=== PATIENT | male | born 1985 | race Caucasian/White ===

== ENCOUNTER 2020-12-31 22:35 | Emergency (ER) | payer SELFPAY ==
[2020-12-31 22:36] VITALS: BP 182/94; PULSE 103; RESP 18; TEMP 36.7; O2SAT 96; BMI 33.4
--- NOTE | 2020-12-31 23:04 | EKG12_ITS ---
Test Reason : DYSRHYTHMIA Blood Pressure : / mmHG Vent. Rate : 091 BPM Atrial Rate : 091 BPM P-R Int : 146 ms QRS Dur : 086 ms QT Int : 366 ms P-R-T Axes : 031 030 030 degrees QTc Int : 450 ms Normal sinus rhythm Nonspecific T wave abnormality Abnormal ECG Confirmed by FADI LEIVA, NAMAN ([id number]), brands editor SHUBHAM MATAMOROS ([id number]) on 01/05/2021 6:53:06 AM Referred By: SCOTTY Confirmed By:NAMAN APONTE MD
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
[2020-12-31 23:12] LABS: Absolute Lymphocyte Count 4.17 X10^3/uL (0.83-4.51); Absolute Neutrophil Count 5.1 X10^3/uL (2.0-7.7); Basophil# 0.08 X10^3/uL; Basophil% 0.8 % (0-1); Eosinophil# 0.25 X10^3/uL; Eosinophils% 2.3 % (0-5); Hematocrit 43.2 % (40-54); Hemoglobin 14.4 g/dL (13.0-16.5); Lymphocyte # 4.17 X10^3/ul (0.83-4.51); Lymphocyte % 39.2 % (19-41); Mean Corp Hgb Conc 33.3 g/dL (32-36); Mean Corpuscular Hgb 30.6 pg (27.0-32.0); Mean Corpuscular Volume 91.9 fL (80-94); Mean Platelet Vol. 10.2 fl (6.2-12.0); Monocyte# 0.97 X10^3/uL; Monocyte% 9.1 % (0-10); NRBC Flagged by Analyzer 0 % (0-5); Neutrophil # 5.13 X10^3/uL (2.7-7.7); Neutrophil % 48.1 % (47-70); Platelet Count 303 K/mm3 (150-450); RBC Distribution Width CV 12.2 % (11.6-14.6); White Blood Count 10.7 K/mm3 (4.4-11.0)
[2020-12-31] MEDS: Morphine 4 MG/ML Syringe IV (23:14)
[2020-12-31] MEDS: Ondansetron 4 MG/2 ML Vial IV (23:15)
[2020-12-31 23:23] LABS: Partial Thromboplast Time 22.2 Seconds (24.1-36.2); Prothrombin Time (Protime)PT. 12.2 SECONDS (11.7-14.9)
[2020-12-31 23:24] LABS: AST(SGOT) 67 U/L (15-37); Alanine Aminotransfer ALT/SGPT 140 U/L (16-61); Albumin, Serum 4.4 g/dL (3.2-5.0); Alkaline Phosphatase 76 U/L (45-117); Anion Gap 11 (5-15); BUN 19 mg/dL (7-18); BUN/Creat Ratio 15.4 RATIO (10-20); Bilirubin, Direct 0.12 mg/dL (0.00-0.30); Calcium,Total 9.3 mg/dL (8.5-10.1); Chloride 105 mmol/L (98-107); Creatinine, Serum 1.23 mg/dL (0.70-1.30); EST Glomerular Filtration Rate 71 mL/min (>60); Est Glom Filt Rate - Afr Amer 86 mL/min (>60); Globulin 3.7 g/dL (2.2-4.2); Glucose 99 mg/dL (74-106); Potassium 3.6 mmol/L (3.5-5.1); Protein, Total 8.1 g/dL (6.4-8.2); Sodium Level 139 mmol/L (136-145)
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
[2021-01-01] MEDS: 0.9% Normal Saline 1,000 ML 200 ML IV (00:28)
[2021-01-01] MEDS: Morphine 4 MG/ML Syringe IV (00:29)
[2021-01-01 00:53] VITALS: BP 145/78; PULSE 106; RESP 16; O2SAT 97
[2021-01-01 01:24] VITALS: BP 141/85; PULSE 96; RESP 18; O2SAT 96
== END 2021-01-01 01:28 | disposition home or self-care (01) ==
PROVIDERS: Emergency Provider Emergency Medicine
DX: S01.81XA Laceration without foreign body of other part of head, initial encounter (principal); S82.892A Other fracture of left lower leg, initial encounter for closed fracture; V29.40XA Motorcycle driver injured in collision with unspecified motor vehicles in traffic accident, initial encounter
CPT/HCPCS: 29505; G0168; 70450; 71260; 72125; 73590; 74177; 80048; 80076; 85025; 85610; 85730; 93005; 96374; 96375; 96376; 99285; J7030; Q9967; A4216; J2405

== ENCOUNTER → 2021-01-07 07:10 | Outpatient (CLI) | payer MEDICAID, SELFPAY ==
[2020-12-31 22:36] VITALS: BMI 33.4
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
== END ==
PROVIDERS: Referring Provider Podiatrist; Visit Provider Podiatrist
DX: S82.445A Nondisplaced spiral fracture of shaft of left fibula, initial encounter for closed fracture (principal); S82.392A Other fracture of lower end of left tibia, initial encounter for closed fracture
CPT/HCPCS: 73700

== ENCOUNTER 2021-02-02 14:41 | Emergency (ER) | payer MEDICAID, SELFPAY ==
[2021-02-02 14:43] VITALS: BP 149/93; PULSE 92; RESP 16; TEMP 36.7; O2SAT 96; BMI 30.9
--- NOTE | 2021-02-02 15:03 | VDLE_ITS ---
Reason For Study: pain RIGHT LEFT CFV is compressible, spontaneous, phasic, GSV is normal. competent and demonstrates normal CFV is compressible, spontaneous, phasic, augmentation. competent, and demonstrates normal Procedure augmentation. This is a venous duplex using B-mode, color FV is compressible, spontaneous, phasic, flow and spectral Doppler. competent and demonstrates normal Exam performed portable in ED. augmentation. The exam was diagnostic. POP V is compressible, spontaneous, phasic, A preliminary report was called and/or faxed competent and demonstrates normal to Dr. Leonardo. augmentation. T/P Trunk is compressible. LT PerV is compressible. PTV and Soleus V are dilated and noncompressible. VL/Venous Duplex US, Unilateral Interpretation Summary Acute deep vein thrombosis is noted in the left posterior tibial vein. Acute de ep vein thrombosis is noted in the left soleus vein. The remainder of the left lower extremity deep v enous system is patent and compressible. Valvular competence appears intact within the proximal deep venous system on the left . The left great saphenous vein appears patent and compressible seg mentally. Ordering Physician: Catarina Leonardo Performed By: Abhay Jordan RVT and Student
[2021-02-02] MEDS: APIXABAN 5 MG TABLET 10 MG PO (16:03)
[2021-02-02 16:04] VITALS: BP 142/96; PULSE 78; RESP 16; O2SAT 96
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
== END 2021-02-02 16:08 | disposition home or self-care (01) ==
PROVIDERS: Emergency Provider Student in an Organized Health Care Education/Training Program
DX: I82.4Z2 Acute embolism and thrombosis of unspecified deep veins of left distal lower extremity (principal)
CPT/HCPCS: 93971; 99283

== ENCOUNTER → 2021-02-09 12:17 | Outpatient (CLI) | payer MEDICAID, SELFPAY ==
[2021-02-02 14:43] VITALS: BMI 30.9
== END ==
PROVIDERS: PCP Family Medicine; Referring Provider Family Medicine; Visit Provider Family Medicine
DX: I82.409 Acute embolism and thrombosis of unspecified deep veins of unspecified lower extremity (principal)
CPT/HCPCS: 36415

== ENCOUNTER → 2021-04-21 10:42 | Outpatient (CLI) | payer MEDICAID, SELFPAY | PROVIDERS: PCP Family Medicine; Referring Provider Family Medicine; Visit Provider Family Medicine | DX: D68.51 Activated protein C resistance (principal) | CPT/HCPCS: 36415; 81241 ==

== ENCOUNTER 2021-09-13 08:30 | Outpatient (RCR) | payer MEDICAID, SELFPAY ==
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
--- NOTE | 2021-06-22 11:28 | HP.PTREVAL_ITS ---
Dr. Shae Ng, DPM, It has been my pleasure to treat PAUL MORRISON over the last 10 visits for Left pilon fracture. Please see the progress note below for an update on the physical therapy plan of care! Subjective: Got some strength back in foot. ROM is still limited. Stretching at home. No falls. Working out in gym doing everything and started weights last week. Squats and lunges challening. No boot needed anymore. Pain level is just sore and tylenol now and then. Not working yet(needs to be on ladders). Sees Tomorrow. Objective/Function: 3 degreeDF L and 8 R. PF 50 R and 44 L.Inv and Ev functional on both legs. SLS challenging on L. Steps recirpocal without rail but lands on L hindfoot vs forefoot. Avoids pushoff with l on gait. ROM limits lunge and squat. 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 Plan Plan: NEW POC for 3 visits left in approval. Pt to strengthen at home and workout at home and add PF adn Df stretches aggressivley. IN PT , please do PF and DF mobs, aggressive PROM and do this for the entire visit with stretching ex damon into DF and PF. Balance/Gait/Functional tests - Balance/Special Test Scores Lower Extremity Functional Score: 41 Goals Goal 1:: Pt. will improve left ankle DF > 5 degrees in order to improve gait mechanics. Goal Time Frame: 6-8 Weeks Goal Progress: slow progression Goal 2:: Pt. will be able to ambulate with no CAM boot or gait deviations. Goal Time Frame: 6-8 Weeks Goal Progress: Progressing Goal 3:: Pt. will be able to ascend/descend a flight of stairs with alternating step pattern and no handrail. Goal Time Frame: 6-8 Weeks Goal Progress: Goal Met Goal 4:: Pt. will be able to stand/walk for at least 30 minutes with left ankle/foot pain < 3/10. Goal Time Frame: 6-8 Weeks Goal Progress: Goal Met Goal 5:: Pt. will improve left ankle strength to 4+/5 for all motions in order to improve stability and balance. Goal Time Frame: 6-8 Weeks Goal Progress: Goal Met Goal 6:: Pt. will be able to return to work with left ankle/foot pain < 3/10. Goal Time Frame: 6-8 Weeks Goal Progress: not yet. Anticipated Interventions Patient/Client Instruction: Educate patient on: Condition, Benefits of Fitness Program For the Purpose of:: To decrease pain, To decrease swelling/inflammation, To increase ROM, To improve ability to perform ADL's, To improve performance and independence with ADL's, To improve ability of physical actions for home/community/work/leisure, To improve tolerance to ADL's Therapeutic Exercise to Include: Strength training, Endurance training, Balance training, Gait and locomotor training, Passive ROM, Active ROM Comment: Focus on improving ankle/foot strength, balance, and gait mechanics. For the Purpose of:: To decrease pain, To decrease swelling/inflammation, To increase ROM, To improve ability to perform ADL's, To improve performance and independence with ADL's, To improve ability of physical actions for home/commu nity/work/leisure, To increase flexibility/ROM, To improve balance, To improve safety with gait, To assume or resume ADL's, To improve safety, To improve tolerance to ADL's Functional Training to Include: ADL Training, Functional work training, Gait training For the Purpose of:: To decrease pain, To decrease swelling/inflammation, To increase ROM, To improve ability to perform ADL's, To improve performance and independence with ADL's, To improve gait and locomotor functions, To assume or resume ADL's, To improve tolerance to ADL's Manual Therapy Techniques to Include: Mobilization, Passive ROM, Soft tissue mobilization For the Purpose of:: To decrease pain, To decrease swelling/inflammation, To increase ROM, To improve ability to perform ADL's, To improve performance and independence with ADL's, To increase flexibility/ROM, To assume or resume ADL's, To improve safety, To improve tolerance to ADL's Orthotics: Brace Supportive Equipment: Compression garments For the Purpose of:: To decrease pain, To decrease swelling/inflammation, To increase ROM, To improve ability to perform ADL's, To improve performance and independence with ADL's, To increase flexibility/ROM, To improve tolerance to ADL's Please do not hesitate to contact me at [phone] by phone or if you have questions or concerns regarding this new plan of care! Sincerely, Kel Collier, DPT, OCS, CSCS
--- NOTE | 2021-08-02 09:04 | HP.PTREVAL ---
Dr. Shae Ng, DPM, It has been my pleasure to treat PAUL MORRISON over the last 13 visits for Left pilon fracture. Please see the progress note below for an update on the physical therapy plan of care! Subjective: Pt wants him to try another month or two of PT to work on Stretching. 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 Running is way more difficult for him.. does not have power to jump to do a lay up. He can no lunge and squatting is hard. When he wakes up he has soreness and radom at times throughout the day. He fx it back in December. Coming down hills/pitch is hard for him. Objective/Function: L ankle DF AROM: -1 degree from neutral DF. Gait: walks with decrease stance time on the L side. Has hindfoot eversion B. DF stretch has a hard end feel. SLB L 9 seconds and R 25 seconds. Stairs: up and down recip with 2 hand rails Plan Plan: Put in for additional visits for 2-3X/ week for 4- [address] stack for agreesive stretching L ankle into DF, joint mobs, MT, calf rolling, functional stretching and strengthening with HEP. IN PT , please do PF and DF mobs, aggressive PROM and do this for the entire visit with stretching ex damon into DF and PF. Balance/Gait/Functional tests - Balance/Special Test Scores Lower Extremity Functional Score: 37 Goals Goal 1:: Pt. will improve left ankle DF > 5 degrees in order to improve gait mechanics. Goal Time Frame: 6-8 Weeks Goal Progress: slow progression Goal 2:: Pt. will be able to ambulate with no CAM boot or gait deviations. Goal Time Frame: 6-8 Weeks Goal Progress: Progressing Goal 3:: Pt. will be able to ascend/descend a flight of stairs with alternating step pattern and no handrail. Goal Time Frame: 6-8 Weeks Goal Progress: Goal Met Goal 4:: Pt. will be able to stand/walk for at least 30 minutes with left ankle/foot pain < 3/10. Goal Time Frame: 6-8 Weeks Goal Progress: Goal Met Goal 5:: Pt. will improve left ankle strength to 4+/5 for all motions in order to improve stability and balance. Goal Time Frame: 6-8 Weeks Goal Progress: Goal Met Goal 6:: Pt. will be able to return to work with left ankle/foot pain < 3/10. Goal Time Frame: 6-8 Weeks Goal Progress: not yet. Anticipated Interventions Patient/Client Instruction: Educate patient on: Condition, Benefits of Fitness Program For the Purpose of:: To decrease pain, To decrease swelling/inflammation, To increase ROM, To improve ability to perform ADL's, To improve performance and independence with ADL's, To improve ability of physical actions for home/community/work/leisure, To improve tolerance to ADL's Therapeutic Exercise to Include: Strength training, Endurance training, Balance training, Gait and locomotor training, Passive ROM, Active ROM Comment: Focus on improving ankle/foot strength, balance, and gait mechanics. For the Purpose of:: To decrease pain, To decrease swelling/inflammation, To increase ROM, To improve ability to perform ADL's, To improve performance and independence with ADL's, To improve ability of physical actions for home/community/work/leisure, To increase flexibility/ROM, To improve balance, To improve safety with gait, To assume or resume ADL's, To improve safety, To improve tolerance to ADL's Functional Training to Include: ADL Training, Functional work training, Gait training For the Purpose of:: To decrease pain, To decrease swelling/inflammation, To increase ROM, To improve ability to perform ADL's, To improve performance and independence with ADL's, To improve gait and locomotor functions, To assume or resume ADL's, To improve tolerance to ADL's Manual Therapy Techniques to Include: Mobilization, Passive ROM, Soft tissue mobilization For the Purpose of:: To decrease pain, To decrease swelling/inflammation, To increase ROM, To improve ability to perform ADL's, To improve performance and independence with ADL's, To increase flexibility/ROM, To assume or resume ADL's, To improve safety, To improve tolerance to ADL's Orthotics: Brace Supportive Equipment: Compression garments For the Purpose of:: To decrease pain, To decrease swelling/inflammation, To increase ROM, To improve ability to perform ADL's, To improve performance and independence with ADL's, To increase flexibility/ROM, To improve tolerance to ADL's Please do not hesitate to contact me at [phone] by phone or if you have questions or concerns regarding this new plan of care! Sincerely, Aide Tolentino, MPT
--- NOTE | 2021-09-13 09:00 | HP.PTDCSUM ---
It has been my pleasure to treat PAUL MORRISON referred by Dr. Shae Ng, SAHIL, with the diagnosis of Left pilon fracture for a total of 22 visit(s). Discharge Date: 09/13/21 Please see the following information for a summary of their discharge status. Subjective: Ready to try work. Is still sore and stiff in am and better as he uses it. Than it loosens up until the end of the day. 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 Sleep is OK. Activities outside of work are mostly normal, a little hard to squat. L foot Pain Intensity (Out of 10): Unrated % Improvement: 70 Objective/Function: 0 degree active DF, OP does not force PROM any further, no stretch felt just limited at ankle. 4+/5 strength ankle L all 4 directions. Able to walk on toes. Steps reciprocal without rail, gait is normal this am. Overall doing well but ROM is not improving despite aggressive mobs and stretching. Strength is better but walking on steeper roofs may not be a good idea with the limited L ankle ROM which is not improving. i reviewed this with patient. Goal 1:: Pt. will improve left ankle DF > 5 degrees in order to improve gait mechanics. Goal Progress: Not Progressing Goal 2:: Pt. will be able to ambulate with no CAM boot or gait deviations. Goal Progress: Goal Met Goal 3:: Pt. will be able to ascend/descend a flight of stairs with alternating step pattern and no handrail. Goal Progress: Goal Met Goal 4:: Pt. will be able to stand/walk for at least 30 minutes with left ankle/foot pain < 3/10. Goal Progress: Goal Met Goal 5:: Pt. will improve left ankle strength to 4+/5 for all motions in order to improve stability and balance. Goal Progress: Goal Met Goal 6:: Pt. will be able to return to work with left ankle/foot pain < 3/10. Goal Progress: met but not steep roofs Plan: d/c, pt to call doctor and move appointment up. Discharge Comments: Pt has done well but ROM not improving despite working hard on mobs and stretching. Will call to f/u with doctor. If there are questions or concerns regarding this patient's physical therapy, please feel free to call me at [phone]. Thank you for the referral of this patient. Sincerely, Kel Collier, DPT, OCS, CSCS Balance/Gait/Functional tests - Balance/Special Test Scores Lower Extremity Functional Score: 43
== END 2021-09-13 19:00 | disposition home or self-care (01) ==
LOC: PT 08:30
PROVIDERS: PCP Family Medicine; Referring Provider Podiatrist; Visit Provider Podiatrist
DX: S82.872D Displaced pilon fracture of left tibia, subsequent encounter for closed fracture with routine healing (principal); X58.XXXD Exposure to other specified factors, subsequent encounter
CPT/HCPCS: 97110; 97140; 97161; 97164; 97530

== ENCOUNTER → 2022-03-16 | Outpatient (CLI) | payer MEDICAID, SELFPAY ==
--- NOTE | 2022-03-16 10:21 | MRI_ITS ---
STUDY: MRI LEFT ANKLE WITHOUT CONTRAST REASON FOR EXAM: Left ankle pain, limited mobility, stiffness, pilon fracture 1 year ago. TECHNIQUE: Standardized fat and water weighted pulse sequences were obtained in all 3 orthogonal planes. COMPARISON: CT images 01/07/2021, radiographs 12/31/2020. FINDINGS: Normal subcutis adipose space. Normal posterior tibialis tendon. Normal flexor digitorum longus tendon. Normal flexor hallucis longus tendon. Normal peroneus longus and brevis tendons. Normal tibialis anterior tendon. Normal extensor hallucis longus tendon. Normal extensor digitorum longus tendons. Normal Achilles tendon and teno-osseous insertion. Normal plantar fascia. Normal plantar calcaneal tubercles. Normal intrinsic muscles of the rearfoot. Normal distal tibiofibular syndesmotic ligamentous complex. There is thickening of the anterior talofibular ligament (T2 axial image 19) consistent with scarring. There is thickening of the calcaneofibular ligament (T2 axial image 21) consistent with scarring. Normal subtalar ligaments and sinus tarsi. Normal deltoid ligamentous complexes. Normal plantar calcaneonavicular (spring) ligament. There is chronic healed fracture deformity of the distal tibia with mild residual bone edema (T2 coronal images 15-17) and a small osteochondral lesion of the anterior aspect of the medial tibial plafond (T1 coronal images 8, 9) measuring 0.7 cm in AP dimension and a small osteochondral lesion of the anterior aspect of the lateral tibial plafond (T1 coronal image 15) measuring 0.35 cm in AP dimension. Normal talar dome. Normal subtalar articulations. Normal talonavicular articulation. Normal calcaneocuboid articulation. Normal navicular-cuneiform articulations. 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 Scarring of the anterior talofibular and calcaneofibular ligaments. Electronically Signed: Gianluca France MD at 11:43 EDT ,
== END | disposition home or self-care (01) ==
PROVIDERS: PCP Family Medicine; Visit Provider Podiatrist
DX: S82.392A Other fracture of lower end of left tibia, initial encounter for closed fracture (principal); M25.572 Pain in left ankle and joints of left foot; M93.272 Osteochondritis dissecans, left ankle and joints of left foot
CPT/HCPCS: 73721

== ENCOUNTER 2022-08-11 17:15 | Emergency (ER) | payer MEDICAID, SELFPAY ==
[2022-08-11 17:16] VITALS: BP 177/100; PULSE 77; RESP 16; TEMP 36.7; O2SAT 98; BMI 32.1
--- NOTE | 2022-08-11 17:41 | CT_ITS ---
INDICATION: headaches, R facial numbness EXAMINATION: CT BRAIN - CT Head or Brain W/O Contrast Injection TECHNIQUE: Multiple axial images were obtained of the head without intravenous contrast. A radiation dose optimization technique was used for this scan. IV Contrast dosage and agent: None. COMPARISON: 12.31.20 FINDINGS: BRAIN PARENCHYMA: No intra- or extra-axial hemorrhage. No evidence of acute infarct. No intracranial mass or mass effect. There is preservation of the andrew/white matter interface. Posterior fossa structures are unremarkable. CSF SPACES: Appropriate for age. No hydrocephalus. Basal cisterns are patent. CALVARIUM, SKULL BASE, PARANASAL SINUSES AND MASTOID AIR CELLS: Clear. No discrete lytic or blastic abnormalities. ORBITS: Both globes, extraocular muscles, optic nerves and retrobulbar fat appear unremarkable. ASPECTS Score for Acute Strokes: 10 CT/Brain/Head without Contrast IMPRESSION: Negative Brain CT without contrast. Electronically Signed: Roque Hidalgo MD at 18:36 EST ,
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
[2022-08-11 19:15] VITALS: BP 138/98; PULSE 70; RESP 15; O2SAT 98
[2022-08-11 19:22] VITALS: BP 138/98
[2022-08-11 19:46] VITALS: BP 138/98; PULSE 70; RESP 15; O2SAT 98
[2022-08-11] MEDS: predniSONE 20 MG Tablet 60 MG PO (19:50)
[2022-08-11 19:52] VITALS: BP 138/98; PULSE 70; RESP 15; O2SAT 99
== END 2022-08-11 19:53 | disposition home or self-care (01) ==
PROVIDERS: Emergency Provider Emergency Medicine; PCP Family Medicine; Visit Provider Emergency Medicine
DX: R51.9 Headache, unspecified (principal); R53.1 Weakness; Z86.718 Personal history of other venous thrombosis and embolism
CPT/HCPCS: 70450; 99283

== ENCOUNTER 2023-01-08 15:48 | Observation (INO) | payer MEDICAID, SELFPAY ==
[2023-01-08] VITALS (12 sets, daily range): BP systolic 126–195; BP diastolic 83–110; PULSE 71–105; RESP 16–18; TEMP 36.4–37.1; O2SAT 95–99; BMI 33.9
--- NOTE | 2023-01-08 15:53 | NURSING ---
[id number] STROKE ALERT CALLED
--- NOTE | 2023-01-08 15:55 | CT_ITS ---
STUDY: CT BRAIN WITHOUT CONTRAST REASON FOR EXAM: Male, 37 years old. Neuro deficit, acute, stroke suspected RADIATION DOSAGE (If Supplied By Facility): CTDIvol = ( ) mGy, DLP = ( ) mGycm TECHNIQUE: Transaxial CT imaging of the brain was performed without administration of intravenous contrast material. Individualized dose optimization techniques were used for this CT. COMPARISON: 08/11/2022. FINDINGS: Normal soft tissue structures. Normal calvarium. Normal size ventricles and extra-axial spaces for the patient''s age. Normal white matter tracts of the cerebral hemispheres. Normal basal ganglia and thalami. Normal brainstem. Normal cerebellum. There is no intracranial hemorrhage. There are no findings of an acute ischemic infarction. Mild mucosal thickening in the maxillary sinuses. CT/STROKE Brain/Head without Cont IMPRESSION: Normal unenhanced CT scan of the brain. N.B. : The above Results were Read Back by Tatyana Sanchez MD to Kishore Tomlinson DO, and understanding confirmed on 01/08/2023 16:23:59 (ET). Electronically Signed: Tatyana Sanchez MD at 16:16 EDT Reading Location ID and State: [id number] / Tel , Service support ,
--- NOTE | 2023-01-08 15:55 | EKG12_ITS ---
Test Reason : NEURO Blood Pressure : / mmHG Vent. Rate : 100 BPM Atrial Rate : 100 BPM P-R Int : 152 ms QRS Dur : 086 ms QT Int : 320 ms P-R-T Axes : 038 023 024 degrees QTc Int : 412 ms Normal sinus rhythm Nonspecific T wave abnormality Abnormal ECG Confirmed by RAMIRO LEIVA, RILEY ([id number]), school photograph editor SHUBHAM MATAMOROS ([id number]) on 01/09/2023 11:45:42 AM Referred By: UG/RU Confirmed By:RILEY RUBIO MD
--- NOTE | 2023-01-08 15:56 | CT_ITS ---
INDICATION: Neuro deficit, acute, stroke suspected EXAMINATION: CT BRAIN WITH CONTRAST TECHNIQUE: Routine carotid CT angiogram protocol was performed without and with IV contrast. In addition, images were obtained of the [place] of [place]. NASCET criteria using the distal ICAs for comparison were used for evaluation of stenoses. 3D reconstructions were reviewed. A radiation dose optimization technique was used for this scan. IV Contrast dosage and agent: COMPARISON: FINDINGS: --CTA NECK: AORTIC ARCH AND BRANCHES: Normal anatomy, patent. RIGHT CCA: No occlusion, significant stenosis or dissection. RIGHT ICA: No occlusion, significant stenosis or dissection. LEFT CCA: No occlusion, significant stenosis or dissection. LEFT ICA: No occlusion, significant stenosis or dissection. RIGHT VERTEBRAL ARTERY: No occlusion, significant stenosis or dissection. LEFT VERTEBRAL ARTERY: No occlusion, significant stenosis or dissection. NECK SOFT TISSUES: Unremarkable. --CTA HEAD: --Anterior circulation: ICAs: No significant stenosis at the intracranial/visualized segments. ACAs: No significant stenosis at the visualized segments. ACOM: Present. MCAs: No significant stenosis at the visualized segments. --Posterior circulation: PCOMs: Intact left, nonvisualized on the right. telephone clerk telegraph office: origin of the left posterior cerebral artery with intact left posterior communicating artery and absent P1 segment. No significant stenosis at the visualized segments. BASILAR ARTERY: No significant stenosis. VERTEBRAL ARTERIES: No significant stenosis at the intradural/visualized segments. No evidence of intracranial aneurysm or vascular malformation. Mucosal thickening in the maxillary sinuses. CT/STROKE CTA Head AND Neck W/Con IMPRESSION: Negative CTA Carotid, and CTA Brain. N.B. : Marie Self OT, confirmed on 01/08/2023 17:21:17 (ET) that the referring physician received the results and does not require a verbal communication. Electronically Signed: Tatyana Sanchez MD at 16:44 EDT Reading Location ID and State: [id number] / Tel , Service support ,
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
--- NOTE | 2023-01-08 16:00 | NURSING ---
FACESHEET FAXED TO [facility]
--- NOTE | 2023-01-08 16:25 | ED.RN ---
Teleneuro on with patient.
[2023-01-08 16:26] LABS: Bedside Glucose 124 mg/dL (74-106)
[2023-01-08 16:29] LABS: Absolute Neutrophil Count 12.6 X10^3/uL (2.0-7.7); Basophil# 0.08 X10^3/uL; Basophil% 0.5 % (0-1); Eosinophil# 0.16 X10^3/uL; Hematocrit 50.8 % (40-54); Lymphocyte % 10.7 % (19-41); Mean Corp Hgb Conc 33.5 g/dL (32-36); Mean Corpuscular Hgb 31.3 pg (27.0-32.0); Mean Corpuscular Volume 93.4 fL (80-94); Mean Platelet Vol. 10.4 fl (6.2-12.0); Monocyte# 1.36 X10^3/uL; Monocyte% 8.5 % (0-10); NRBC Flagged by Analyzer 0 % (0-5); Neutrophil # 12.58 X10^3/uL (2.7-7.7); Neutrophil % 78.9 % (47-70); Platelet Count 291 K/mm3 (150-450); RBC Distribution Width CV 12.3 % (11.6-14.6); RBC Distribution Width SD 42.5 fl (35.1-43.9); Red Blood Count 5.44 M/mm3 (4.6-6.2)
[2023-01-08] MEDS: Aspirin 81 MG TAB.CHEW 324 MG PO (16:37)
[2023-01-08 16:40] LABS: Prothrombin Time (Protime)PT. 13.1 SECONDS (11.7-14.9)
[2023-01-08 16:41] LABS: Partial Thromboplast Time 29.2 Seconds (24.1-36.2)
[2023-01-08 16:53] LABS: Anion Gap 6 (5-15); BUN 7 mg/dL (7-18); BUN/Creat Ratio 5.8 RATIO (10-20); Calcium,Total 9.8 mg/dL (8.5-10.1); Chloride 102 mmol/L (98-107); EST Glomerular Filtration Rate 72 mL/min (>60); Est Glom Filt Rate - Afr Amer 88 mL/min (>60); Estimated Creatinine Clearance 81.54 ml/min; Glucose 102 mg/dL (74-106); Potassium 3.6 mmol/L (3.5-5.1); Sodium Level 135 mmol/L (136-145); Troponin-I HS 9 pg/mL (3.0-78.0)
--- NOTE | 2023-01-08 17:05 | RAD_ITS ---
INDICATION: Neuro deficit, acute, stroke suspected EXAMINATION/TECHNIQUE: X-RAY - XR Chest 1 View COMPARISON: CT chest 12/31/2020. FINDINGS: LINES/DEVICES: None. LUNGS: No consolidation, edema or effusion. No pneumothorax. MEDIASTINUM AND CARDIOVASCULAR STRUCTURES: Cardiac silhouette not enlarged. Central airways and mediastinal contour are unremarkable. BONES AND SOFT TISSUES: Unremarkable. RAD/Chest 1 View IMPRESSION: No radiographic evidence of acute cardiopulmonary disease. Electronically Signed: Tatyana Sanchez MD at 18:16 EDT Reading Location ID and State: [id number] / Tel , Service support ,
--- NOTE | 2023-01-08 17:10 | ED.RN ---
BP out of limits for labetolol. Patient aware of treatment plan.
--- NOTE | 2023-01-08 17:19 | NURSING ---
118 OBS JOPPERI PARESTHESIS, HYPERTENSION
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
[2023-01-08 18:09] LABS: Troponin-I HS 13 pg/mL (3.0-78.0)
[2023-01-08 18:10] LABS: Alcohol, Blood (Medical)-Serum < 3.0 mg/dL
--- NOTE | 2023-01-08 18:45 | ECHOCS_ITS ---
Version 2 Reason For Study: TIA/CVA Procedure This was a 2D Doppler, Color Flow transthoracic echocardiogram. Myocardial strain analysis was performed in this exam to aid in the assessment of cardiac function. Contrast injection was performed. Exam performed portable in patient room. Left Ventricle Normal LV size. Apical false tendon noted. Mild Non compaction at apex noted. Left ventricular systolic function is normal. The estimated ejection fraction is 55 %. Stage 1 diastolic dysfunction. No regional wall motion abnormalities noted. Right Ventricle Normal RV size. Normal systolic function. Atria Normal left atrium. Normal right atrium. Bubble contrast study negative for right to left interatrial shunt. Mitral Valve Normal mitral valve. Tricuspid Valve Normal tricuspid valve. Aortic Valve Trisinus/trileaflet aortic valve. Pulmonic Valve Normal pulmonic valve. Great Vessels Normal aortic root. The pulmonary artery is normal size. Normal inferior vena cava. Pericardium/Pleural No pericardial effusion. Medication Diluted definity 3ml given slow IV push to enhance endocardial definition. Performed a rapid injection of agitated mix of 9 cc saline and 1cc air to assess for atrial septal defect. MMode/2D Measurements & Calculations LVIDd: 6.0 cm IVSd: 1.1 cm Ao root diam: 3.0 cm LVIDs: 4.5 cm LVPWd: 1.1 cm RVDd: 3.5 cm FS: 25.2 % LAV(MOD-bp): 48.2 ml LVAd ap4: 34.8 cm2 SV(MOD-sp4): 74.9 ml LAV(MOD-bp) Indexed: 22.8 ml/m2 LVLd ap4: 7.6 cm LAV(MOD-sp2): 36.0 ml EDV(MOD-sp4): 131.1 ml LAV(MOD-sp4): 51.1 ml EDV(sp4-el): 134.9 ml LVAs ap4: 20.6 cm2 LVLs ap4: 6.2 cm ESV(MOD-sp4): 56.2 ml ESV(sp4-el): 58.3 ml EF(MOD-sp4): 57.1 % EF(sp4-el): 56.8 % SV(sp4-el): 76.6 ml LA A4 area: 18.9 cm2 LA dimension(2D): 4.0 cm RA A4 area: 14.0 cm2 Time Measurements MV dec time: 0.17 sec Doppler Measurements & Calculations MV E max thom: 75.0 cm/sec Lat Peak E' Thom: 11.7 cm/sec Med Peak E' Thom: 7.0 cm/sec MV A max thom: 80.0 cm/sec E/E' lat: 6.4 E/E' med: 10.7 MV E/A: 0.94 MV dec slope: 450.6 cm/sec2 Ao V2 max: 149.0 cm/sec LV V1 max: 126.1 cm/sec Ao max P.9 mmHg LV V1 max P.4 mmHg Ao V2 mean: 97.5 cm/sec LV V1 mean P.3 mmHg Ao mean P.5 mmHg LV V1 mean: 83.8 cm/sec Ao V2 VTI: 26.9 cm LV V1 VTI: 23.3 cm AV (velocity ratio): 0.87 PA V2 max: 95.7 cm/sec ECHO/Echo Complete W/ Contrast Interpretation Summary Normal LV size. Left ventricular systolic function is normal. The estimated ejection fraction is 55 %. Stage 1 diastolic dysfunction. Bubble contrast study negative for right to left interatrial shunt. Mild Non compaction at apex noted Contrast injection was performed. The global longitudinal strain is moderately abnormal. The global longitudinal strain = -14.6% (abnormal). Ordering Physician: Kel Spencer Referring Physician: Corey Betts Performed By: Whitney Welch RDCS, RVT
[2023-01-09] VITALS (12 sets, daily range): BP systolic 142–158; BP diastolic 77–128; PULSE 68–78; RESP 16; TEMP 36.4–36.8; O2SAT 96–100; BMI 33.9
[2023-01-09 06:57] LABS: Absolute Lymphocyte Count 1.89 X10^3/uL (0.83-4.51); Absolute Neutrophil Count 3.7 X10^3/uL (2.0-7.7); Basophil# 0.07 X10^3/uL; Eosinophil# 0.91 X10^3/uL; Eosinophils% 12.4 % (0-5); Hematocrit 53.5 % (40-54); Hemoglobin 17.3 g/dL (13.0-16.5); Lymphocyte # 1.89 X10^3/ul (0.83-4.51); Lymphocyte % 25.8 % (19-41); Mean Corp Hgb Conc 32.3 g/dL (32-36); Mean Corpuscular Hgb 31.2 pg (27.0-32.0); Mean Corpuscular Volume 96.4 fL (80-94); Mean Platelet Vol. 10.7 fl (6.2-12.0); Monocyte# 0.73 X10^3/uL; NRBC Flagged by Analyzer 0 % (0-5); Neutrophil # 3.71 X10^3/uL (2.7-7.7); Neutrophil % 50.5 % (47-70); Platelet Count 272 K/mm3 (150-450); RBC Distribution Width CV 12.5 % (11.6-14.6); RBC Distribution Width SD 45.1 fl (35.1-43.9); Red Blood Count 5.55 M/mm3 (4.6-6.2); White Blood Count 7.3 K/mm3 (4.4-11.0)
[2023-01-09 07:33] LABS: Cholesterol 179 mg/dL (200); High Density Lipoprotein 34 mg/dL; Triglycerides 125 mg/dL; Very Low Density Lipoprotein 25 mg/dL (5-40)
[2023-01-09] MEDS: Aspirin 81 MG TAB.CHEW PO (08:13)
--- NOTE | 2023-01-09 09:00 | MRI_ITS ---
STUDY: MRI BRAIN WITHOUT CONTRAST REASON FOR EXAM: Male, 37 years old. left sided paresthesias, facial N/T TECHNIQUE: Standardized multiplanar fat and water weighted pulse sequences were obtained. COMPARISON: Head CT dated January 08, 2023 FINDINGS: Normal size of the ventricles and extra-axial spaces for the patient''s age. Normal white matter tracts of the supratentorial brain. There is no evidence for recent intracranial ischemia or other cause of cytotoxic edema on diffusion weighted imaging (DWI). Normal T2* images of the brain without demonstrated susceptibility artifact. There is no demonstrated hemosiderin stain. There are no demyelinating plagues of the supratentorial brain, brainstem or cerebellum. There are no findings suspicious for multiple sclerosis (MS). Normal bilateral basal ganglia. Normal thalami. There is no extra-axial fluid accumulation. Normal flow voids within the major intracranial circulation suggesting patency by spin echo criteria. Normal sella turcica, pituitary gland, infundibular stalk, optic chiasm and hypothalamus. Normal tectal plate and pineal gland. Normal midbrain, kat and medulla. Normal cerebellum. Normal basal cisterns. Normal bilateral temporal bones. Normal bilateral internal auditory canals. No demonstrated orbital abnormality, within the constraints of a routine brain study. There is mucoperiosteal inflammatory disease of the paranasal sinuses consistent with mild chronic sinusitis. Normal calvarium and skull base. Normal visualized soft tissue structures. Normal visualized upper cervical spine. MRI/Brain without Contrast IMPRESSION: Normal unenhanced MRI of the brain. Electronically Signed: Gagan Carrera MD at 15:01 EDT Reading Location ID and State: [facility] / [place] , Service support ,
--- NOTE | 2023-01-09 09:00 | MRI_ITS ---
STUDY: MRI CERVICAL SPINE WITHOUT CONTRAST REASON FOR EXAM: Male, 37 years old. left arm paresthesia, facial N/T TECHNIQUE: Standardized fat and water weighted pulse sequences were obtained in the sagittal and axial planes. COMPARISON: CT of the cervical spine dated December 31, 2020 FINDINGS: Normal foramen magnum and brainstem-cervical cord junction. Normal craniovertebral junction. Normal anterior atlantoaxial articulation. Normal odontoid process. There is reversal of the normal cervical lordosis. C2-3: Normal endplates. Mild disc desiccation. Normal disc height and morphology. Normal central canal and intervertebral neural foramina. C3-4: Normal endplates. Mild disc desiccation. Normal disc height and morphology. Normal central canal and intervertebral neural foramina. C4-5: Normal endplates. Diffuse disc desiccation with mild disc space narrowing and slight annular bulging. Mild to moderate right foraminal stenosis due to uncovertebral hypertrophy with impingement. Mild left foraminal stenosis due to uncovertebral and facet joint hypertrophy. Normal central canal. C5-6: Normal endplates. Mild disc desiccation. Normal disc height and morphology. Normal central canal and left neural foramen. Mild right foraminal stenosis secondary to uncovertebral hypertrophy. C6-7: Normal endplates. Normal disc height, signal and morphology. Normal central canal and intervertebral neural foramina. C7-T1: Normal endplates. Normal disc height, signal and morphology. Normal central canal and intervertebral neural foramina. Normal cervical cord. There is no demonstrated cervical cord syrinx cavity. Normal visualized soft tissue structures. MRI/Spine Cervical (Routine) IMPRESSION: 1. Mild degenerative changes, as described above. 2. C4-C5: Mild to moderate right foraminal stenosis with nerve root impingement. Mild left foraminal stenosis. 3. Mild right foraminal stenosis at C5-C6 4. No demonstrated left foraminal stenosis or nerve root impingement on the current study Electronically Signed: Gagan Carrera MD at 15:11 EDT ,
--- NOTE | 2023-01-09 16:52 | DCINST_ITS ---
Discharge Instructions Diet Discharge Diet: No restrictions Activity Discharge Activity: Return to Normal Activity Dressing / Incision Call your doctor if you observe: Fever of 101 or Higher, Shortness of breath, Dizziness, Fainting spells, Swelling in the ankles, Chest pain and Increased palpitations (irregular heartbeat) Follow Up Care Test Results: Test results from this visit will be discussed in further detail at your follow- up appointment, if applicable. Discharge Plan Admission Admit Date/Time: 01/08/23 17:20 Attending Provider: El Garcia Primary Care Provider: Corey Betts Consulting Providers: Kel Spencer Discharge Orders/Prescriptions Prescriptions: New amlodipine [Norvasc] 5 mg tablet 5 mg PO DAILY Qty: 30 0RF Discontinued prednisone 20 mg tablet 40 mg PO DAILY Qty: 10 0RF valacyclovir 1 gram tablet 1,000 mg PO TID Qty: 21 0RF Referrals / Follow Up: Corey Betts MD [Primary Care Provider] - Within 1 Week Disposition Disposition (needs filled in before D/C Order can be placed): Home, Self Care
--- NOTE | 2023-01-09 17:41 | NURSING ---
Patient seen in [facility] after he received his DC Meds from pharmacy. This RN asked him to wait for his DC instructions but he declined to do so. patient removed his own IV and tele and walked out of the hospital with significant other.
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
== END 2023-01-09 17:42 | disposition home or self-care (01) ==
LOC: ED 17:12 → PCU 17:29
PROVIDERS: Emergency Provider Emergency Medicine; PCP Family Medicine; Visit Provider Family Medicine
DX: G43.109 Migraine with aura, not intractable, without status migrainosus (principal); F14.10 Cocaine abuse, uncomplicated; I10 Essential (primary) hypertension; Z86.711 Personal history of pulmonary embolism; Z79.899 Other long term (current) drug therapy; R94.31 Abnormal electrocardiogram [ECG] [EKG]
CPT/HCPCS: 36415; 70450; 70496; 70498; 70551; 71045; 72141; 80048; 80061; 82077; 82962; 84484; 85025; 85610; 85730; 93005; 93306; 94762; 99221; 99285; Q9957; Q9967; A4216; C8929; G0378

== ENCOUNTER → 2024-08-02 | Outpatient (CLI) | payer MEDICAID, SELFPAY ==
[2024-08-02 15:57] LABS: Absolute Lymphocyte Count 2.26 X10^3/uL (0.83-4.51); Absolute Neutrophil Count 6.7 X10^3/uL (2.0-7.7); Basophil# 0.08 X10^3/uL; Basophil% 0.8 % (0-1); Eosinophil# 0.32 X10^3/uL; Eosinophils% 3.1 % (0-5); Hematocrit 52.8 % (40-54); Hemoglobin 17.8 g/dL (13.0-16.5); Lymphocyte # 2.26 X10^3/ul (0.83-4.51); Mean Corp Hgb Conc 33.7 g/dL (32-36); Mean Corpuscular Hgb 30.8 pg (27.0-32.0); Mean Corpuscular Volume 91.3 fL (80-94); Monocyte# 0.92 X10^3/uL; NRBC Flagged by Analyzer 0 % (0-5); Neutrophil # 6.65 X10^3/uL (2.7-7.7); Neutrophil % 64.7 % (47-70); Platelet Count 267 K/mm3 (150-450); RBC Distribution Width SD 40.1 fl (35.1-43.9); Red Blood Count 5.78 M/mm3 (4.6-6.2); White Blood Count 10.3 K/mm3 (4.4-11.0)
[2024-08-02 16:21] LABS: Color, Urine Yellow (Yellow); Glucose, Dipstick Normal (Normal); Ketone-Dipstick Negative (Negative); Leukocyte Esterase-Dipstick Negative /ul (Negative); Nitrite-Dipstick Negative (Negative); Occult Blood-Urine Negative /ul (Negative); Protein-Dipstick Negative (Negative); Urine Bilirubin Dipstick Negative (Negative); Urine Clarity Clear (Clear); Urine Urobilinogen Normal (Normal)
[2024-08-02 16:48] LABS: ALB/GLOB Ratio 1.1 RATIO (0.9-2.4); AST(SGOT) 27 U/L (15-37); Alanine Aminotransfer ALT/SGPT 75 U/L (16-61); Albumin, Serum 4.1 g/dL (3.2-5.0); Alkaline Phosphatase 75 U/L (45-117); Anion Gap 6 (5-15); BUN 12 mg/dL (7-18); BUN/Creat Ratio 10.5 RATIO (10-20); Calcium,Total 9.2 mg/dL (8.5-10.1); Chloride 103 mmol/L (98-107); Creatinine, Serum 1.14 mg/dL (0.70-1.30); EST Glomerular Filtration Rate 76 mL/min (>60); Est Glom Filt Rate - Afr Amer 92 mL/min (>60); Globulin 3.9 g/dL (2.2-4.2); Glucose 71 mg/dL (74-106); Potassium 4.1 mmol/L (3.5-5.1); Sodium Level 136 mmol/L (136-145)
[2024-08-02 17:02] LABS: HIV - WCH Non-Reactive (Nonreactive); Syphilis Antibodies Non-reactive
== END | disposition home or self-care (01) ==
LOC: LAB 15:01
PROVIDERS: PCP Family Medicine
DX: R30.0 Dysuria (principal); Z13.6 Encounter for screening for cardiovascular disorders; Z72.51 High risk heterosexual behavior; Z13.1 Encounter for screening for diabetes mellitus
CPT/HCPCS: 36415; 80053; 81002; 83036; 84443; 85025; 86703; 86780; 87086; 87491; 87591; 87661

== ENCOUNTER → 2024-10-18 | Outpatient (CLI) | payer MEDICAID, SELFPAY ==
[2024-10-18 10:20] LABS: Absolute Lymphocyte Count 1.96 X10^3/uL (0.83-4.51); Absolute Neutrophil Count 3.9 X10^3/uL (2.0-7.7); Basophil# 0.04 X10^3/uL; Basophil% 0.6 % (0-1); Eosinophil# 0.18 X10^3/uL; Eosinophils% 2.7 % (0-5); Hematocrit 46.3 % (40-54); Hemoglobin 15.9 g/dL (13.0-16.5); Lymphocyte # 1.96 X10^3/ul (0.83-4.51); Lymphocyte % 29.6 % (19-41); Mean Corp Hgb Conc 34.3 g/dL (32-36); Mean Corpuscular Volume 90.3 fL (80-94); Mean Platelet Vol. 10.4 fl (6.2-12.0); Monocyte# 0.57 X10^3/uL; Monocyte% 8.6 % (0-10); NRBC Flagged by Analyzer 0 % (0-5); Neutrophil # 3.85 X10^3/uL (2.7-7.7); Neutrophil % 58.2 % (47-70); Platelet Count 241 K/mm3 (150-450); RBC Distribution Width CV 11.6 % (11.6-14.6); RBC Distribution Width SD 38.1 fl (35.1-43.9); Red Blood Count 5.13 M/mm3 (4.6-6.2); White Blood Count 6.6 K/mm3 (4.4-11.0)
[2024-10-18 10:33] LABS: D-Dimer Quantitative (DVT/PE) < 0.27 FEU/ug/m (0.27-0.49)
[2024-10-18 10:55] LABS: ALB/GLOB Ratio 1.6 RATIO (0.9-2.4); AST(SGOT) 29 U/L (<=37); Alanine Aminotransfer ALT/SGPT 90 U/L (<=46); Albumin, Serum 4.7 g/dL (3.5-5.0); Alkaline Phosphatase 65 U/L (40-129); Anion Gap 12 (5-15); BUN 13 mg/dL (4-19); BUN/Creat Ratio 11.6 RATIO (10-20); Calcium,Total 9.6 mg/dL (7.6-11.0); Carbon Dioxide 24.2 mmol/L (21.0-32.0); Chloride 103 mmol/L (98-108); Creatinine, Serum 1.13 mg/dL (0.70-1.20); EST Glomerular Filtration Rate 85 (>60); Glucose 94 mg/dL (70-99); Potassium 4.2 mmol/L (3.3-5.1); Protein, Total 7.7 g/dL (5.9-8.4); Sodium Level 140 mmol/L (133-145); Thyroid Stim Hormone (TSH) 0.955 uIU/mL (0.300-4.200); Total Bilirubin 0.53 mg/dL (0.00-1.30); Troponin T High Sensitivity < 6 ng/L (<=22)
== END | disposition home or self-care (01) ==
LOC: VSLAB 10:00
DX: R07.9 Chest pain, unspecified (principal)
CPT/HCPCS: 36415; 80053; 84443; 84484; 85025; 85379